=== PATIENT | male | born 1995 | race African-American/Black ===

== ENCOUNTER 2020-05-12 07:46 | Emergency (ER) | payer OTHER ==
[2020-05-12] MEDS ORDERED: VENTOLIN HFA18 GM INH (08:43)
[2020-05-12] MEDS ORDERED: REMERON15 MG PO (08:44)
== END 2020-05-12 16:07 | disposition short-term general hospital (02) ==
LOC: ED 07:46
DX: S14.0XXA Concussion and edema of cervical spinal cord, initial encounter (principal); G83.9 Paralytic syndrome, unspecified; W18.2XXA Fall in (into) shower or empty bathtub, initial encounter; Z79.899 Other long term (current) drug therapy
CPT/HCPCS: 70450; 70551; 72125; 72141; 80053; 82150; 82550; 83690; 85025; 85610; 85730; 86850; 86900; 86901; 96374; 99285-25; C9803; J1885; U0003